=== PATIENT | female | born 1945 | race Caucasian/White ===

== ENCOUNTER 2017-06-11 22:06 | Emergency (ER) | payer MEDICARE ==
[~2017-06-11] VITALS: Ht 165.1 cm; Wt 82.4 kg
[~2017-06-11 22:06] MED LIST: AMLO5TAB2 PO; ASPI81TA23 PO; ATOR20TA15 PO; CALC12502 PO; LACTCAP8 PO; TRAZ50TA12 PO; VITATAB25 PO
[2017-06-11 22:13] VITALS: BP 166/70; PULSE 71; RESP 18; TEMP 98.2; O2SAT 95
[2017-06-11] MEDS ORDERED: METO1TAB42 PO (22:54)
--- NOTE | 2017-06-11 22:58 | PD ---
HPI Chief Complaint: Foreign Body Time Seen by Provider: 22:51 Travel History International Travel<30 days: No Contact w/Intl Traveler<30days: No Traveled to known affect area: No History of Present Illness HPI 72-year-old female presents to the emergency department for complaint of retained esophageal foreign body sensation since 8:30 PM. Patient states that she ate a piece of chicken and shortly thereafter felt as if the chicken was stuck in her upper esophagus. Patient states she has not attempted to eat any food subsequently but has had a oral secretions and oral hydration well. Due to persistent discomfort 2/10 in intensity patient Jewel Casiano comes to the emergency room for evaluation. Patient denies any prior history of retained esophageal foreign body. 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 Pablo and everything was fine from the esophagus standpoint was identified to have some delay in gastric emptying. Patient also has history of hypertension and dyslipidemia. No report of choking. No vomiting. Also no stridor or hoarseness. PFSH Past Medical History Narrative Medical Hypertension dyslipidemia GERD; nursing notes reviewed ?: Not Social History Tobacco Use: No Allergies-Medications (Allergen,Severity, Reaction): Coded Allergies: penicillin G (Verified Allergy, Severe, 06/11/17) diatrizoate meglumine (Verified Allergy, Mild, Rash, 06/11/17) gadobenic acid (Verified Allergy, Mild, Rash, 06/11/17) gadodiamide (Verified Allergy, Mild, Rash, 06/11/17) gadoteridol (Verified Allergy, Mild, Rash, 06/11/17) iodixanol (Verified Allergy, Mild, Rash, 06/11/17) iohexol (Verified Allergy, Mild, Rash, 06/11/17) Reported Meds & Prescriptions Reported Meds & Active Scripts Active Reported Metoprolol Succinate ER 24 HR (Metoprolol Succinate) 25 Mg Tab 25 Mg PO DAILY Vitamin D-[address] (Cholecalciferol) 1,000 Unit Tab 1,000 Units PO DAILY Atorvastatin (Atorvastatin Calcium) 20 Mg Tab 20 Mg PO DAILY Aspirin EC (Aspirin) 81 Mg Tabdr 81 Mg PO DAILY Trazodone (Trazodone HCl) 50 Mg Tab 50 Mg PO DAILY Amlodipine (Amlodipine Besylate) 5 Mg Tab 5 Mg PO DAILY Review of Systems Except as stated in HPI: all other systems reviewed are Neg General / Constitutional: No: Fever HENT: No: Congestion Cardiovascular: No: Chest Pain or Discomfort Respiratory: No: Shortness of Breath Gastrointestinal: No: Nausea, Vomiting, Abdominal Pain Genitourinary: No: Flank Pain Musculoskeletal: No: Pain Skin: No Rash Neurologic: No: Weakness Psychiatric: No: Anxiety Physical Exam Narrative GENERAL: Well-developed well-nourished female no acute distress or respiratory distress no stridor no hoarseness also no drooling; handling oral secretions well SKIN: Warm and dry. HEAD: Normocephalic. EYES: No scleral icterus. No injection or drainage. ENT: Mucous membranes moist posterior pharynx airway is patent NECK: Supple, trachea midline. No JVD or lymphadenopathy. CARDIOVASCULAR: Regular rate and rhythm without murmurs, gallops, or rubs. RESPIRATORY: Breath sounds equal bilaterally. No accessory muscle use. GASTROINTESTINAL: Abdomen soft, non-tender, nondistended. Data Data Last Documented VS Vital Signs Date Time Temp Pulse Resp B/P (MAP) Pulse Ox O2 Delivery O2 Flow Rate FiO2 06/11/17 23:20 73 20 128/59 (82) 94 06/11/17 22:13 98.2 Orders Orders Iv Access Insert/Monitor (06/11/17 22:51) Ecg Monitoring (06/11/17 22:51) Oximetry (06/11/17 22:51) NPO (06/11/17 22:51) Metoclopramide Inj (Reglan Inj) (06/11/17 23:00) Nitroglycerin Sl (Nitrostat Sl) (06/11/17 23:00) Sodium Chlor 0.9% 1000 Ml Inj (Ns 1000 M (06/11/17 23:00) Diphenhydramine Inj (Benadryl Inj) (06/12/17 00:00) Diphenhydramine (Benadryl) (06/12/17 01:00) Ed Discharge Order (06/12/17 00:50) MDM Medical Decision Making Medical Screen Exam Complete: Yes Emergency Medical Condition: Yes Medical Record Reviewed: Yes Differential Diagnosis Retained esophageal foreign body, esophageal spasm, GERD Narrative Course IV access obtained, Regaln 10 mg iv and nitroglycerin 0.4 mg SL administered x 1 dose each Patient notes FB sensation improving but c/o sensation of needing to remind herself to swallow after receiving reglan @ 12:50 patient reports FB sensation resolved but still notes mild sensation of needing to swallow which has almost resolved since administration of Benadryl 25 mg IV additional dose of Benadryl administered 25 mg by mouth Diagnosis Primary Impression: Esophageal spasm Additional Impression: Adverse drug reaction Qualified Codes: T88.7XXA - Unspecified adverse effect of drug or medicament, initial encounter Referrals: Mark Pablo MD 1 day Patient Instructions: General Instructions Additional Instructions: Increase fluid hydration Avoid Reglan/metoclopramide use Recommend following a clear liquid diet for next 6-12 hours advance as tolerated to bland/soft diet then regular diet Recommend following up with your supervisor finishing department in the a.m. call office to schedule follow-up appointment Return to the emergency department for any concerns or change in condition May use [id number] Benadryl per package directions as needed Disposition: 01 DISCHARGE HOME Condition: Stable Nereyda Dean MD Jun 11, 2017 22:58
[2017-06-11 23:00] VITALS: BP 128/59; PULSE 62; RESP 20
[2017-06-11] MEDS ORDERED: SODIUM CHLOR 0.9% 1000 ML INJ 1,000 ML IV SCH (23:00)
[2017-06-11] MEDS ORDERED: NITROGLYCERIN 0.4 MG SL 25 TABS/BTL SL ONE (23:00)
[2017-06-11] MEDS ORDERED: METOCLOPRAMIDE HCL 10 MG/2 ML VIAL IV PUSH ONE (23:00)
[2017-06-11 23:20] VITALS: BP 128/59; PULSE 73; RESP 20; O2SAT 94
[2017-06-12] VITALS: BP 136/66; PULSE 62; RESP 20; O2SAT 98
[2017-06-12] MEDS ORDERED: diphenhydrAMINE HCL 50 MG/ML VIAL IV PUSH ONE
[2017-06-12] MEDS ORDERED: diphenhydrAMINE HCL 25 MG CAP PO ONE (01:00)
[2017-06-12 01:06] VITALS: BP 144/70
== END 2017-06-12 01:14 | disposition home or self-care (01) ==
LOC: PHED 22:06
DX: K22.4 Dyskinesia of esophagus (principal); T88.7XXA Unspecified adverse effect of drug or medicament, initial encounter; I10 Essential (primary) hypertension; K21.9 Gastro-esophageal reflux disease without esophagitis; Z88.0 Allergy status to penicillin; Z88.8 Allergy status to other drugs, medicaments and biological substances; X58.XXXA Exposure to other specified factors, initial encounter
CPT/HCPCS: 96361; 96374; 96375; 99284; J1200; J2765; J7030